=== PATIENT | female | born 1945 | race African-American/Black ===

== ENCOUNTER 2018-08-30 00:17 | Emergency (ER) | payer MEDICARE, OTHER ==
[~2018-08-30] VITALS: Ht 165.1 cm; Wt 75.0 kg
[2018-08-30] MEDS ORDERED: LIDOCAINE 1%/EPI 1:100,000 10 ML VIAL IJ ONE (01:15)
[2018-08-30] MEDS ORDERED: ACETAMINOPHEN 325MG TABLET PO ONE (01:15)
[2018-08-30] MEDS ORDERED: BACITRACIN ZINC OINT UDPKT TOP ONE (01:15)
[2018-08-30 01:39] VITALS: BP 144/84
[2018-08-30] MEDS: LIDOCAINE HCL/EPINEPHRINE 1%-EPI 1:100,000 20 ML VIAL INFIL NR (02:20)
== END 2018-08-30 03:10 | disposition home or self-care (01) ==
LOC: ER 00:17
DX: S01.81XA Laceration without foreign body of other part of head, initial encounter (principal); S13.8XXA Sprain of joints and ligaments of other parts of neck, initial encounter; E78.00 Pure hypercholesterolemia, unspecified; I10 Essential (primary) hypertension; W10.8XXA Fall (on) (from) other stairs and steps, initial encounter; Y93.89 Activity, other specified; Y92.89 Other specified places as the place of occurrence of the external cause; Y99.8 Other external cause status; Z96.653 Presence of artificial knee joint, bilateral; Z88.5 Allergy status to narcotic agent
CPT/HCPCS: 12011; 70450; 72125; 99284; J3490; 12013